=== PATIENT | female | born 1980 | race Hispanic/Latino ===

== ENCOUNTER 2023-02-28 10:22 | Inpatient (IN) | payer MEDICAID, OTHER ==
[2023-02-28] MEDS ORDERED: hydrALAZINE 20 MG/ML VIAL SLOW IVP PRN ×3 (11:10→11:47)
[2023-02-28 11:18] VITALS: BMI 41.0
[2023-02-28] MEDS ORDERED: Magnesium Sulfate 20 gm/500 ml 20 GM/500 ML BAG ONE (11:43)
[2023-02-28] MEDS ORDERED: Tranexamic Acid 1,000 MG/10 ML VIAL IVP PRN (11:47)
[2023-02-28] MEDS ORDERED: Famotidine/PF 20 mg/2ml Vial SLOW IVP PRN (11:47)
[2023-02-28] MEDS ORDERED: Diphenoxylate HCl/Atropine Tablet PO PRN (11:47)
[2023-02-28] MEDS ORDERED: Calcium Gluc 4.6 MEQ/10 ML (100 MG/ML) SLOW IVP PRN (11:47)
[2023-02-28] MEDS ORDERED: Bicitra 30 ML UDCUP PO PRN (11:47)
[2023-02-28] MEDS ORDERED: Ondansetron PF 4 MG/2 ML Vial IVP PRN ×2 (11:47→14:00)
[2023-02-28] MEDS ORDERED: Misoprostol 200 MCG TAB PR PRN (11:47)
[2023-02-28] MEDS ORDERED: Lorazepam 2 MG/ML VIAL SLOW IVP PRN (11:47)
[2023-02-28] MEDS ORDERED: Labetalol HCl 100 MG/20 ML VIAL SLOW IVP PRN ×2 (11:47)
[2023-02-28] MEDS ORDERED: Promethazine HCl 25 MG/ML VIAL IM PRN ×2 (11:47→14:00)
[2023-02-28] MEDS ORDERED: Carboprost 250 MCG/ML AMP IM PRN (11:47)
[2023-02-28 12:00] LABS: #Basophils 0.1 10x3/uL (0.0-0.2); #Eosinphils 0.1 10x3/uL (0.0-0.5); #Monocytes 0.5 10x3/uL (0.0-1.1); #Neutrophils 4.4 10x3/uL (1.5-8.4); %Eosinophils 0.9 % (0.0-6.0); %Lymphocytes 23.7 % (18.0-47.0); %Monocytes 7.5 % (0.0-10.0); Hemoglobin 13.1 g/dL (12.0-15.5); Mean Corpuscular HGB CONC 34.7 g/dL (32.0-36.0); Mean Corpuscular Hemoglobin 34.2 pg (27.0-33.0); Mean Corpuscular Volume 98.7 fl (81.6-98.3); Mean Platelet Volume 11.4 fl (7.4-10.4); Platelet Count 222 10x3/uL (150-450); RBC Distribution Width 13.2 % (11.5-14.5); Red Blood Cell (RBC) Count 3.83 10x6/uL (3.90-5.03); White Blood Cell (WBC) Count 6.7 10x3/uL (3.5-10.5)
[2023-02-28] MEDS ORDERED: Magnesium 2 GM/50 ML(in water) 4 GM in Premix Bag 1 BAG IVPB SCH (12:00)
[2023-02-28] MEDS ORDERED: CEFAZOLIN 2 GM in Sodium Chloride 0.9% 100 ML IVPB SCH (12:00)
[2023-02-28] MEDS ORDERED: Magnesium 2 GM/50 ML(in water) 1 GM in Premix Bag 1 BAG IVPB SCH (12:00)
[2023-02-28] MEDS ORDERED: NS w/ Oxytocin 30 units 500 ML IV SCH (12:00)
[2023-02-28] MEDS: Lactated Ringer's 1,000 ML IV SCH ×2 (12:01→21:28)
[2023-02-28 12:08] LABS: ALT (SGPT) 13 U/L (8-55); AST (SGOT) 20 U/L (5-34); Albumin 3.3 g/dL (3.5-5.0); Alkaline Phosphatase 217 U/L (40-110); Anion Gap 15 mmol/L (10-20); BUN (Urea Nitrogen) 7 mg/dL (7.0-18.7); Bilirubin, Total 0.2 mg/dL (0.2-1.2); Calc. Creatinine Clearance 143 mL/min (70-130); Carbon Dioxide 17 mmol/L (22-29); Chloride 110 mmol/L (98-107); Estimated GFR 112; Globulin 3.2 g/dL (2.4-3.5); Glucose 78 mg/dL (70-105); Potassium 3.8 mmol/L (3.5-5.1); Protein, Total 6.5 g/dL (6.0-8.3); Sodium 138 mmol/L (136-145)
[2023-02-28] MEDS ORDERED: Magnesium Sulfate 20 gm/500 ml 4 GM/100 ML BAG IVPB ONE (12:15)
[2023-02-28 12:48] LABS: Creatinine, Urine 40.67 mg/dL (47-110)
[2023-02-28 12:52] LABS: Hemoglobin 12.9 g/dL (12.0-15.5); Mean Corpuscular HGB CONC 34.4 g/dL (32.0-36.0); Mean Corpuscular Hemoglobin 33.7 pg (27.0-33.0); Mean Corpuscular Volume 97.9 fl (81.6-98.3); Mean Platelet Volume 11.3 fl (7.4-10.4); Platelet Count 228 10x3/uL (150-450); RBC Distribution Width 13.2 % (11.5-14.5); Red Blood Cell (RBC) Count 3.83 10x6/uL (3.90-5.03); White Blood Cell (WBC) Count 6.8 10x3/uL (3.5-10.5)
[2023-02-28 12:57] LABS: INR-International Normal Ratio 0.8; PTT 26.1 sec (22.0-33.0); Prothrombin Time 8.8 sec (9.5-12.1)
[2023-02-28 13:02] LABS: Troponin I Less than 0.010 ng/mL (< 0.028)
[2023-02-28 13:17] LABS: HBSAg Index 0.13 S/CO (0-0.99); Hep B Surf Ag - L&D Non-Reactive S/CO (NonReactive)
[2023-02-28 13:18] LABS: Syphilis Antibody Nonreactive (Nonreactive); Syphilis Antibody Index 0.03 S/CO (<1.00 Non-Reactive)
[2023-02-28] MEDS ORDERED: Communication Order-Pharmacy FS SCH (14:00)
[2023-02-28] MEDS ORDERED: Naloxone HCl 0.4 mg/ml Vial IV PRN (14:00)
[2023-02-28] MEDS ORDERED: Ketorolac Tromethamine 30 MG/ML VIAL IVP SCH (14:00)
[2023-02-28] MEDS ORDERED: Moisturizing Cream (Eucerin) 113 GM JAR TOP PRN (14:00)
[2023-02-28] MEDS ORDERED: Fentanyl 100 MCG/2 ML VIAL SLOW IVP PRN (14:00)
[2023-02-28] MEDS ORDERED: Meperidine HCl/PF 25 MG/ML VIAL SLOW IVP PRN (14:00)
[2023-02-28] MEDS ORDERED: HYDROmorphone 2 MG/ML VIAL SLOW IVP PRN (14:00)
[2023-02-28] MEDS ORDERED: Ondansetron HCl/PF 4 MG/2 ML Vial IVP PRN (14:00)
[2023-02-28] MEDS ORDERED: Naloxone HCl 0.4 mg/ml Vial IVP PRN ×2 (14:00)
[2023-02-28] MEDS ORDERED: diphenhydrAMINE 50 MG/ML VIAL IVP PRN (14:00)
[2023-02-28] MEDS ORDERED: Promethazine HCl 25 MG SUPP PR PRN (14:00)
[2023-02-28] MEDS ORDERED: Morphine PF 10 MG/10 ML VIAL ONE (14:04)
[2023-02-28] MEDS ORDERED: Oxytocin 10 UNITS/ML VIAL ONE (14:19)
[2023-02-28] MEDS ORDERED: Ondansetron PF 4 MG/2 ML Vial ONE (14:19)
[2023-02-28] MEDS ORDERED: PHENYLEPHRINE-NS 100 MCG/ML 10 ML SYRINGE ONE (14:19)
[2023-02-28] MEDS ORDERED: Dexamethasone 4 mg/ml Vial ONE (14:19)
[2023-02-28] MEDS ORDERED: Metoclopramide HCl 10 MG/2 ML VIAL ONE ×2 (14:19→15:03)
[2023-02-28] MEDS ORDERED: Phenylephrine 40 MG/NS 250 ML 250 ML ONE (14:28)
[2023-02-28] MEDS ORDERED: Promethazine HCl 25 MG/ML VIAL ONE (15:03)
[2023-02-28] MEDS: Ketorolac Tromethamine 30 MG/ML VIAL IVP PRN (19:01)
[2023-02-28] MEDS: Magnesium Sulfate 20 gm/500 ml 20 GM/500 ML BAG IVPB PRN (19:45)
[2023-03-01] MEDS: Ketorolac Tromethamine 30 MG/ML VIAL IVP PRN ×2 (05:04→13:38)
[2023-03-01 05:34] LABS: Anion Gap 14 mmol/L (10-20); BUN (Urea Nitrogen) 7 mg/dL (7.0-18.7); Calc. Creatinine Clearance 149 mL/min (70-130); Carbon Dioxide 18 mmol/L (22-29); Chloride 104 mmol/L (98-107); Estimated GFR 113; Glucose 88 mg/dL (70-105); Magnesium 6.7 mg/dL (1.6-2.6); Sodium 132 mmol/L (136-145)
[2023-03-01] MEDS: Magnesium Sulfate 20 gm/500 ml 20 GM/500 ML BAG IVPB PRN (07:20)
[2023-03-01 08:40] LABS: #Monocytes 0.4 10x3/uL (0.0-1.1); %Basophils 0.5 % (0.0-2.0); %Eosinophils 0.2 % (0.0-6.0); %Lymphocytes 14.3 % (18.0-47.0); %Monocytes 4.8 % (0.0-10.0); %Neutrophils 79.6 % (40.0-75.0); Hemoglobin 11.1 g/dL (12.0-15.5); Mean Corpuscular HGB CONC 34.9 g/dL (32.0-36.0); Mean Corpuscular Hemoglobin 34.2 pg (27.0-33.0); Mean Corpuscular Volume 97.8 fl (81.6-98.3); Mean Platelet Volume 10.9 fl (7.4-10.4); Platelet Count 198 10x3/uL (150-450); RBC Distribution Width 13.2 % (11.5-14.5); Red Blood Cell (RBC) Count 3.25 10x6/uL (3.90-5.03); White Blood Cell (WBC) Count 8.8 10x3/uL (3.5-10.5)
[2023-03-01] MEDS: Furosemide 20 MG/2 ML VIAL SLOW IVP SCH ×2 (08:44→09:28)
[2023-03-01 09:04] LABS: ALT (SGPT) 7 U/L (8-55); AST (SGOT) 23 U/L (5-34); Albumin 2.7 g/dL (3.5-5.0); Alkaline Phosphatase 171 U/L (40-110); Anion Gap 12 mmol/L (10-20); BUN (Urea Nitrogen) 7 mg/dL (7.0-18.7); Bilirubin, Total 0.3 mg/dL (0.2-1.2); Calc. Creatinine Clearance 152 mL/min (70-130); Carbon Dioxide 20 mmol/L (22-29); Chloride 104 mmol/L (98-107); Estimated GFR 114; Globulin 2.5 g/dL (2.4-3.5); Glucose 84 mg/dL (70-105); Potassium 3.8 mmol/L (3.5-5.1); Protein, Total 5.2 g/dL (6.0-8.3); Sodium 132 mmol/L (136-145)
[2023-03-01 09:08] LABS: Calcium 6.8 mg/dL (7.8-10.44); Magnesium 6.8 mg/dL (1.6-2.6)
[2023-03-01] MEDS ORDERED: Acetaminophen 500 MG TAB PO SCH (10:00)
[2023-03-01] MEDS ORDERED: Boostrix 0.5 ML (Tdap) VIAL (>/=7 yrs of age) IM ONE (16:32)
[2023-03-01] MEDS ORDERED: diphenhydrAMINE 25 MG CAP PO PRN (16:32)
[2023-03-01] MEDS ORDERED: HYDROcodone/Acetaminophen 5/325 mg Tablet PO PRN (16:32)
[2023-03-01] MEDS ORDERED: Acetaminophen 325 MG TAB PO PRN (16:32)
[2023-03-01] MEDS ORDERED: Docusate 100 MG CAP PO SCH (17:00)
[2023-03-01] MEDS ORDERED: Prenatal Vitamin 1 TAB PO SCH (17:00)
[2023-03-01] MEDS: HYDROcodone/Acetaminophen 5/325 mg Tablet PO PRN (17:13)
[2023-03-01] MEDS: Lactated Ringer's 1,000 ML IV SCH (17:51)
[2023-03-01] MEDS: Docusate 100 MG CAP PO SCH (21:48)
[2023-03-01] MEDS: Ibuprofen 800 MG TAB PO SCH (21:49)
[2023-03-01] MEDS: Simethicone Chewable 80 MG TAB PO PRN (21:49)
[2023-03-02 05:04] LABS: ALT (SGPT) 11 U/L (8-55); AST (SGOT) 21 U/L (5-34); Albumin 2.6 g/dL (3.5-5.0); Alkaline Phosphatase 147 U/L (40-110); Anion Gap 13 mmol/L (10-20); BUN (Urea Nitrogen) 8 mg/dL (7.0-18.7); Bilirubin, Total 0.2 mg/dL (0.2-1.2); Calc. Creatinine Clearance 143 mL/min (70-130); Calcium 7.7 mg/dL (7.8-10.44); Carbon Dioxide 21 mmol/L (22-29); Chloride 109 mmol/L (98-107); Estimated GFR 112; Globulin 2.6 g/dL (2.4-3.5); Glucose 83 mg/dL (70-105); Potassium 3.8 mmol/L (3.5-5.1); Protein, Total 5.2 g/dL (6.0-8.3); Sodium 139 mmol/L (136-145)
[2023-03-02] MEDS: HYDROcodone/Acetaminophen 5/325 mg Tablet PO PRN ×5 (05:13→22:00)
[2023-03-02] MEDS: Ibuprofen 800 MG TAB PO SCH ×3 (05:13→21:00)
[2023-03-02] MEDS: Prenatal Vitamin 1 TAB PO SCH (08:38)
[2023-03-02] MEDS: Docusate 100 MG CAP PO SCH ×3 (08:38→21:09)
[2023-03-02] MEDS: Simethicone Chewable 80 MG TAB PO PRN (20:55)
[2023-03-03] MEDS: Simethicone Chewable 80 MG TAB PO PRN ×2 (00:59→05:50)
[2023-03-03] MEDS: HYDROcodone/Acetaminophen 5/325 mg Tablet PO PRN (04:14)
[2023-03-03] MEDS: Ibuprofen 800 MG TAB PO SCH ×2 (05:50→14:20)
[2023-03-03] MEDS ORDERED: HYDROcodone/Acetaminophen 5/325 mg Tablet PO PRN (07:00)
[2023-03-03] MEDS: Prenatal Vitamin 1 TAB PO SCH (14:22)
[2023-03-03] MEDS: Docusate 100 MG CAP PO SCH (14:22)
[2023-03-03 14:26] VITALS: BP 112/59; TEMP 97.9
== END 2023-03-03 15:30 | disposition home or self-care (01) | DRG 787 ==
LOC: CSHLD/OP 10:22 → CSHLD 11:52 → CSHPP 03-01 16:22
PROVIDERS: ADMIT Obstetrics & Gynecology; ATTEND Emergency Medicine
PROC: 10D00Z1 Extraction of Products of Conception, Low, Open Approach (ICD-10-PCS; principal; 2023-02-28)
DX: O14.14 Severe pre-eclampsia complicating childbirth (principal); O98.52 Other viral diseases complicating childbirth; O34.211 Maternal care for low transverse scar from previous cesarean delivery; Z3A.37 37 weeks gestation of pregnancy; Z37.0 Single live birth; Z87.440 Personal history of urinary (tract) infections; B00.9 Herpesviral infection, unspecified; Z79.82 Long term (current) use of aspirin; O99.214 Obesity complicating childbirth; E66.9 Obesity, unspecified; N32.89 Other specified disorders of bladder; O99.892 Other specified diseases and conditions complicating childbirth
CPT/HCPCS: 36415; 51702; 80048; 80053; 82570; 83735; 83880; 84156; 84484; 85025; 85610; 85730; 86780; 86850; 86900; 86901; 87340; 93005; 93010; 99285; J0360; J1100; J1885; J1940; J2274; J2405; J2550; J2590; J2765; J3475; J3490; J7120; S0028